=== PATIENT | male | born 1970 | race Caucasian/White ===

== ENCOUNTER 2018-08-31 19:47 | Inpatient (IN) | payer MEDICAID ==
[~2018-08-31] VITALS: Ht 153.7 cm; Wt 115.7 kg
[2018-08-31 22:04] LABS: CLARITY URINE CLEAR (CLEAR); COLOR URINE YELLOW (YELLOW); KETONES URINE NEGATIVE (NEGATIVE); LEUKOCYTE ESTERASE URINE NEGATIVE (NEGATIVE); NITRITE URINE NEGATIVE (NEGATIVE); OCCULT BLOOD URINE NEGATIVE (NEGATIVE); PROTEIN URINE NEGATIVE (NEGATIVE); SPECIFIC GRAVITY URINE 1.015 (1.005-1.030)
[2018-08-31 23:38] LABS: BASOPHILS % 1.2 % (0.0-2.0); EOSINOPHILS % 3.1 % (0.0-5.0); HEMATOCRIT. 45.2 % (42.0-52.0); HEMOGLOBIN. 15.3 g/dL (14.0-18.0); LYMPHOCYTES % 30.6 % (20.0-50.0); MEAN CORPUSCULAR HEMOGLOBIN 31.8 pg (28.0-32.0); MEAN CORPUSCULAR VOLUME 93.7 fL (80.0-94.0); MEAN PLATELET VOLUME 9.1 fl (7.4-10.4); NEUTROPHILS % 58.1 % (40.0-76.0); PLATELET 205 x1000/uL (130-400); RED BLOOD CELL COUNT 4.82 mill/uL (4.7-6.1); RED CELL DISTRIBUTION WIDTH 14.8 % (11.6-14.6)
[2018-08-31 23:47] LABS: CHLORIDE 108 mEq/L (98-107)
[2018-09-01] MEDS ORDERED: FUROSEMIDE 20MG/2ML VIAL IVP ONE (00:15)
[2018-09-01 02:00] VITALS: BP 127/81
[2018-09-01] MEDS ORDERED: HYDR25TA PO (02:35)
[2018-09-01] MEDS ORDERED: IBUP-2030 PO (02:35)
[2018-09-01] MEDS ORDERED: RANI15SY PO (02:35)
[2018-09-01 04:00] VITALS: BP 119/76
[2018-09-01] MEDS ORDERED: DEXTROSE 50% WATER 50ML SYRINGE IV PRN (06:00)
[2018-09-01] MEDS: BLOOD SUGAR DIAGNOSTIC STRIP TEST SCH ×4 (06:35→21:52)
[2018-09-01] MEDS: INSULIN LISPRO 100 UNITS/ML SUBCUT SCH ×5 (07:50→21:00)
[2018-09-01 08:30] VITALS: BP 116/77
[2018-09-01 10:33] LABS: CREATINE KINASE 64 IU/L (39-308)
[2018-09-01 10:34] LABS: CREATINE KINASE MB FRACTION 1.3 ng/mL (0.5-3.6)
[2018-09-01 12:00] VITALS: BP 100/60
[2018-09-01] MEDS ORDERED: FUROSEMIDE 40MG/4ML VIAL IVP NR (14:45)
[2018-09-01] MEDS ORDERED: POTASSIUM CHLORIDE 10MEQ TABLET SR PO NR (14:45)
[2018-09-01] MEDS: ASPIRIN 81MG EC TABLET PO SCH (14:56)
[2018-09-01 16:00] VITALS: BP 122/73
[2018-09-01 16:43] LABS: CREATINE KINASE 70 IU/L (39-308)
[2018-09-01 20:00] VITALS: BP 112/69
[2018-09-01 20:56] LABS: *BARBITURATES SCREEN URINE NEGATIVE (NEGATIVE)
[2018-09-01 20:57] LABS: *AMPHETAMINES SCREEN URINE NEGATIVE (NEGATIVE); *BENZODIAZEPINES SCREEN URINE NEGATIVE (NEGATIVE); *COCAINE SCREEN URINE NEGATIVE (NEGATIVE); METHADONE URINE SCREEN NEGATIVE (NEGATIVE); OPIATES URINE SCREEN NEGATIVE (NEGATIVE); PHENCYCLIDINE URINE SCREEN NEGATIVE (NEGATIVE)
[2018-09-01 20:58] LABS: CANNABINOID URINE SCREEN NEGATIVE (NEGATIVE)
[2018-09-02] VITALS: BP 123/66
[2018-09-02 04:00] VITALS: BP 121/74
[2018-09-02] MEDS: BLOOD SUGAR DIAGNOSTIC STRIP TEST SCH ×2 (06:16→12:36)
[2018-09-02 07:53] LABS: BASOPHILS % 1.1 % (0.0-2.0); EOSINOPHILS % 2.7 % (0.0-5.0); HEMOGLOBIN. 16.2 g/dL (14.0-18.0); LYMPHOCYTES % 31.1 % (20.0-50.0); MEAN CORPUSCULAR HEMOGLOBIN 31.8 pg (28.0-32.0); MEAN CORPUSCULAR VOLUME 94.1 fL (80.0-94.0); MEAN PLATELET VOLUME 9.5 fl (7.4-10.4); NEUTROPHILS % 59.1 % (40.0-76.0); PLATELET 201 x1000/uL (130-400); RED CELL DISTRIBUTION WIDTH 15.1 % (11.6-14.6)
[2018-09-02 08:00] VITALS: BP 122/68
[2018-09-02 08:07] LABS: CHLORIDE 104 mEq/L (98-107)
[2018-09-02] MEDS: INSULIN LISPRO 100 UNITS/ML SUBCUT SCH ×2 (08:10→12:36)
[2018-09-02] MEDS: ASPIRIN 81MG EC TABLET PO SCH (08:56)
[2018-09-02] MEDS ORDERED: FUROSEMIDE 40MG/4ML VIAL IVP SCH (09:00)
[2018-09-02] MEDS ORDERED: POTASSIUM CHLORIDE 10MEQ TABLET SR PO SCH (09:00)
[2018-09-02 12:00] VITALS: BP 110/68
[2018-09-02 13:28] VITALS: BP 110/68
[2018-09-05 14:17] LABS: HEPATITIS B SURFACE ANTIGEN NEGATIVE
[2018-09-05 14:40] LABS: HEPATITIS A AB IGM NEGATIVE (NEGATIVE)
== END 2018-09-02 15:36 | disposition home or self-care (01) | DRG 861 ==
LOC: ER 19:47 → 6EST 09-01 01:00 → EDBEDREQTM 09-01 01:07 → EDBEDREQ 09-01 01:07 → ENRESERV 09-01 01:27 → 7WST 09-01 07:59
PROVIDERS: ADMIT Internal Medicine; ATTEND Internal Medicine
DX: R60.0 Localized edema (principal); Z68.42 Body mass index [BMI] 45.0-49.9, adult; B19.20 Unspecified viral hepatitis C without hepatic coma; E11.9 Type 2 diabetes mellitus without complications; E66.9 Obesity, unspecified; I10 Essential (primary) hypertension; K21.9 Gastro-esophageal reflux disease without esophagitis; Z79.82 Long term (current) use of aspirin; Z79.899 Other long term (current) drug therapy; Z79.84 Long term (current) use of oral hypoglycemic drugs; Z90.49 Acquired absence of other specified parts of digestive tract
CPT/HCPCS: 36415; 71045; 71250; 76705; 80305; 80307; 82550; 82553; 82962; 83036; 83880; 84443; 84484; 86705; 86709; 86803; 87340; 93005; 93306; 93970; 96374; 99285; J1940

== ENCOUNTER 2018-10-27 15:03 | Emergency (ER) | payer MEDICAID ==
[~2018-10-27] VITALS: Ht 172.7 cm; Wt 100.0 kg
[~2018-10-27 15:03] MED LIST: IBUP-2030 PO; RANI15SY PO
[2018-10-27 15:06] VITALS: BP 129/89
[2018-10-27] MEDS ORDERED: IBUPROFEN 600MG TABLET PO ONE (18:00)
[2018-10-27 18:08] LABS: CLARITY URINE CLEAR (CLEAR); COLOR URINE YELLOW (YELLOW); KETONES URINE NEGATIVE (NEGATIVE); LEUKOCYTE ESTERASE URINE TRACE (NEGATIVE); NITRITE URINE NEGATIVE (NEGATIVE); OCCULT BLOOD URINE NEGATIVE (NEGATIVE); PH URINE 5.5 (4.5-8.0); PROTEIN URINE NEGATIVE (NEGATIVE); SPECIFIC GRAVITY URINE 1.011 (1.005-1.030)
== END 2018-10-27 19:27 | disposition home or self-care (01) ==
LOC: ER 15:03
DX: R10.9 Unspecified abdominal pain (principal); E11.9 Type 2 diabetes mellitus without complications; I10 Essential (primary) hypertension; Z88.0 Allergy status to penicillin; Z86.19 Personal history of other infectious and parasitic diseases; Z90.49 Acquired absence of other specified parts of digestive tract; Z87.891 Personal history of nicotine dependence
CPT/HCPCS: 81003; 99283

== ENCOUNTER 2019-04-10 22:03 | Emergency (ER) | payer MEDICAID ==
[~2019-04-10] VITALS: Ht 170.2 cm; Wt 128.0 kg
[2019-04-11 01:17] VITALS: BP 121/87
== END 2019-04-11 01:18 | disposition home or self-care (01) ==
LOC: ER 22:03
DX: J06.9 Acute upper respiratory infection, unspecified (principal); K21.9 Gastro-esophageal reflux disease without esophagitis; K46.9 Unspecified abdominal hernia without obstruction or gangrene; F15.10 Other stimulant abuse, uncomplicated; E11.9 Type 2 diabetes mellitus without complications; Z90.49 Acquired absence of other specified parts of digestive tract; Z98.890 Other specified postprocedural states; Z88.0 Allergy status to penicillin; Z79.899 Other long term (current) drug therapy
CPT/HCPCS: 71045; 99283

== ENCOUNTER 2019-05-05 09:20 | Emergency (ER) | payer MEDICAID ==
[~2019-05-05] VITALS: Ht 167.6 cm; Wt 127.0 kg
[2019-05-05 13:06] VITALS: BP 142/89
== END 2019-05-05 13:13 | disposition home or self-care (01) ==
LOC: ER 09:20
DX: J20.9 Acute bronchitis, unspecified (principal); J45.909 Unspecified asthma, uncomplicated; F15.10 Other stimulant abuse, uncomplicated; Z90.49 Acquired absence of other specified parts of digestive tract; Z88.0 Allergy status to penicillin; Z79.899 Other long term (current) drug therapy
CPT/HCPCS: 99283